=== PATIENT | male | born 1980 | race Caucasian/White ===

== ENCOUNTER 2019-06-08 21:59 | Emergency (ER) | payer SELFPAY ==
[2019-06-08] MEDS ORDERED: IBUPROFEN 600 MG TABLET PO ONE (22:10)
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
== END 2019-06-08 22:30 | disposition home or self-care (01) ==
LOC: ER 21:59
DX: S39.012A Strain of muscle, fascia and tendon of lower back, initial encounter (principal); X58.XXXA Exposure to other specified factors, initial encounter; Y92.009 Unspecified place in unspecified non-institutional (private) residence as the place of occurrence of the external cause
CPT/HCPCS: 99282

== ENCOUNTER 2019-06-11 19:04 | Emergency (ER) | payer SELFPAY ==
[2019-06-11] MEDS ORDERED: CLINDAMYCIN 150 MG CAP PO ONE (19:15)
--- NOTE | 2019-06-11 19:16 | Emergency Department Record ---
History of Present Illness - General Chief complaint: ENT Stated complaint: SINUS DRAINAGE,SCRATCHY THROAT,BALANCE OFF Time Seen by Provider: 06/11/19 19:15 Source: Patient Mode of Arrival: Ambulatory Limitations: No limitations - History of Present Illness Initial comments: 39 yo male presents with two concerns. He has had over a week of discolored si nus drainage, sinus pressure and ear fullness. No fevers. No chills. He has a mild non productive cough. He has a history of recurrent and chronic sinus infections. He also noted a pimple just under his umbilicus. He popped it. Today the surrounding area became red. No pus drainage currently. No fevers. No other sores or rashes on his body. MD complaint: Other -: Days(s) Location: R ear, L ear, Nose, Throat Severity: Moderate Quality: Aching Consistency: Constant Improves with: None Worsens with: Other Context- Ear: Other (Sinus infections) - Related Data Previous Rx's Medication Instructions Recorded Clindamycin HCl [Cleocin HCl] 300 mg PO QID #28 capsule 06/11/19 Allergies Allergy/AdvReac Type Severity Reaction Status Date / Time No Known Drug Allergies Allergy Verified 06/11/19 19:16 Review of Systems Constitutional: Denies: Chills, Fever, Malaise, Weakness Eyes: Denies: Eye discharge, Eye pain, Photophobia, Vision change ENT: Reports: As per HPI, Congestion, Ear pain, Throat pain Respiratory: Reports: Cough. Denies: Hemoptysis, Wheezes Cardiovascular: Denies: Chest pain, Palpitations, Syncope Endocrine: Denies: Fatigue, Polydipsia, Polyuria Gastrointestinal: Denies: Abdominal pain, Diarrhea, Nausea, Vomiting Genitourinary: Denies: Dysuria, Frequency, Hematuria Musculoskeletal: Denies: Arthralgia, Back pain, Myalgia Skin: Reports: As per HPI, Rash. Denies: Bruising, Change in color Neurological: Denies: Headache, Weakness Psychiatric: Denies: Anxiety Hematological/Lymphatic: Denies: Easy bleeding, Easy bruising Past Medical History - SOCIAL HISTORY Smoking Status: Never smoker Alcohol Use Comment: not in 15 years Drug Use: None - RESPIRATORY Hx Respiratory Disorders: No - CARDIOVASCULAR Hx Cardio Disorders: No - NEURO Hx Neuro Disorders: No - GI Hx GI Disorders: No - Hx Genitourinary Disorders: No - ENDOCRINE Hx Endocrine Disorders: No - MUSCULOSKELETAL Hx Musculoskeletal Disorders: No - PSYCH Hx Psych Problems: Yes Comment:: TBI - HEMATOLOGY/ONCOLOGY Hx Hematology/Oncology Disorders: No Physical Exam - General General Appearance: Alert, Oriented x3, Cooperative, No acute distress Limitations: No limitations - Head Head exam: Atraumatic, Normal inspection - Eye Eye exam: Normal appearance, PERRL. negative: Conjunctival injection, Scleral icterus - ENT ENT exam: Normal exam, Mucous membranes moist, Normal orophraynx. negative: Mucous membranes dry, TM's normal bilaterally (mild fluid bilateral, no erythema) Ear exam: Normal external inspection Nasal Exam: Discharge, Other (mucosal edema) Mouth exam: Normal external inspection Teeth exam: Normal inspection Throat exam: Normal inspection. negative: Tonsillar erythema, Tonsillomegaly, Tonsillar exudate, R peritonsillar mass, L peritonsillar mass - Neck Neck exam: Normal inspection. negative: Lymphadenopathy - Respiratory Respiratory exam: Normal lung sounds bilaterally. negative: Accessory muscle use, Chest wall tenderness, Decreased breath sounds, Prolonged expiratory, Respiratory distress, Rhonchi, Stridor, Wheezes - Cardiovascular Cardiovascular Exam: Regular rate, Normal rhythm, Normal heart sounds - GI/Abdominal GI/Abdominal exam: Soft. negative: Distended, Guarding, Tenderness - Rectal Rectal exam: Deferred - exam: Deferred - Extremities Extremities exam: Normal inspection. negative: Calf tenderness, Pedal edema, Tenderness - Back Back exam: Denies: CVA tenderness (R), CVA tenderness (L), Tenderness - Neurological Neurological exam: Alert, Oriented X3 - Psychiatric Psychiatric exam: Normal affect, Normal mood - Skin Skin exam: Dry, Intact, Normal color, Warm Course Vital Signs 06/11/19 19:09 Temperature 97.9 F Pulse Rate [ 86 Pulse Ox Probe] Respiratory 20 Rate Blood Pressure 151/95 [Left Arm] Pulse Ox 96 - Reevaluation(s) Reevaluation #1: 06/11/19 19:23 The examination is consistent with sinusitis He also has a mild cellulitis on the abdomen. No pus or fluctuance. No area suspicious for abscess. Rx for Clindamycin provided Disposition Disposition: Discharge Clinical Impression: Sinusitis, Cellulitis Disposition: Home, Self-Care Condition: (1) Good Instructions: Cellulitis (ED), Sinusitis (ED) Additional Instructions: Review this ER visit and the tests performed with your family doctor Call your doctor for the next available follow up appointment Return to the ER for a recheck immediately if worse, any new concerns or questions Take the prescriptions provided as directed Prescriptions: Clindamycin HCl [Cleocin HCl] 300 mg PO QID #28 capsule Forms: Patient Portal Access Time of Disposition: 19:16 Quality - Quality Measures Quality Measures: N/A - Blood Pressure Screening Does Patient Have Any of the Following: No Blood Pressure Classification: Hypertensive Reading Systolic Measurement: 151 Diastolic Measurement: 95 Screening for High Blood Pressure: < Pre-Hypertensive BP, F/U Documented > [G8950] Pre-Hypertensive Follow-up Interventions: Referral to alternative/primary care provider.
== END 2019-06-11 19:34 | disposition home or self-care (01) ==
LOC: ER 19:04
DX: L03.311 Cellulitis of abdominal wall (principal); J01.90 Acute sinusitis, unspecified; R05 Cough
CPT/HCPCS: 99283